=== PATIENT | female | born 1990 | race Caucasian/White ===

== ENCOUNTER 2020-02-16 00:21 | Emergency (ER) | payer BC, SELFPAY ==
[2020-02-16 00:23] VITALS: BP 153/99; PULSE 115; RESP 20; TEMP 36.4; O2SAT 100
--- NOTE | 2020-02-16 01:08 | ED.WOUNDLAC ---
HPI - Wound/Laceration General Chief Complaint: Wound/Laceration Stated Complaint: laceration LLE Time Seen by Provider: 02/16/20 00:53 History of Present Illness HPI narrative: Patient presents to the ER via her boyfriend, for a left leg laceration. She fell backwards tonight on the metal handle of an ice chest. She said the pain is 4 out of 10. No other injuries. Tetanus is up-to-date. She has no medical problems. Onset (ago): hour(s) Extremity Location: Left: thigh Related Data Home Medications Medication Instructions Recorded Confirmed etonogestrel-ethinyl estradiol vag ring VAGINAL 02/16/20 [NuvaRing] Allergies Allergy/AdvReac Type Severity Reaction Status Date / Time No Known Allergies Allergy Verified 02/16/20 00:26 Review of Systems Review of Systems: Narrative: CONSTITUTIONAL: Denies fever, chills, or sweats. EYES: Denies visual changes, redness, or discharge. ENT: Denies rhinorrhea, congestion, sore throat, or otalgia. CARDIOVASCULAR: Denies chest pain, palpitations, or edema. RESPIRATORY: Denies cough or dyspnea. GASTROINTESTINAL: Denies abdominal pain, nausea, vomiting, or diarrhea. GENITOURINARY: Denies dysuria or hematuria. SKIN: Denies rash or itching. MUSCULOSKELETAL: Denies back pain, joint pain, or myalgia. 2 cm laceration on the left posterior thigh. NEUROLOGIC: Denies headache, numbness, or weakness. All systems reviewed & are unremarkable except as noted in HPI and below PMFSH Past Medical History Medical History (Updated 02/16/20 @ 01:12 by Cherry Garvey MD) Leg laceration Social History Social History (Updated 02/16/20 @ 01:10 by Cherry Garvey MD) Alcohol intake: current Exam Narrative: Exam Narrative: GENERAL: Well-appearing, well-nourished, and in no acute distress. Taniya young lady. HEAD: Normocephalic, atraumatic. EYES: PERRLA and EOMI. ENT: Nares clear, no rhinorrhea or epistaxis. Mucous membranes moist. NECK: Supple. CHEST: Clear to auscultation. No respiratory distress. HEART: Regular rate and rhythm. No murmur heard. Normal peripheral pulses. ABDOMEN: Soft, nontender, nondistended, normal active bowel sounds. EXTREMITIES: Normal range of motion. No edema. 2 cm laceration on the posterior left thigh, no longer bleeding. SKIN: Warm, dry, no rash. NEURO: No focal deficits. Alert and oriented x3. PSYCH: Normal mood and affect. Course Vital Signs Vital signs: Vital Signs Temperature 97.5 F L 02/16/20 00:23 Pulse Rate 115 H 02/16/20 00:23 Respiratory Rate 20 02/16/20 00:23 Blood Pressure 153/99 H 02/16/20 00:23 Pulse Oximetry 100 02/16/20 00:23 Temperature 97.5 F L 02/16/20 00:23 Pulse Rate 115 H 02/16/20 00:23 Respiratory Rate 20 02/16/20 00:23 Blood Pressure 153/99 H 02/16/20 00:23 Pulse Oximetry 100 02/16/20 00:23 Procedures Laceration Laceration 1: Date: 02/16/20 Time: 01:10 Site: lower extremity Side (If applicable): left Size (cm): 2 Description: linear Depth: simple, single layer Local Anesthetic: none ====== Skin Level ====== Skin layer closed with: john (3) ====== Subcutaneous Layer ====== ====== Muscle Layer ====== ====== Tendon Layer ====== Dressing: Gauze and tape MDM - Wound/Laceration Medical Records Attestation: I reviewed the patient's medical records. Discharge Plan Discharge Clinical Impression: Leg laceration Qualifiers: Encounter type: initial encounter Laterality: left Qualified Code(s): S81.812A - Laceration without foreign body, left lower leg, initial encounter Patient Disposition: Home, Self-Care Condition: Stable Instructions: Laceration (ED), Staple Care (ED) Prescriptions: No Action etonogestrel-ethinyl estradiol [NuvaRing] 0.12-0.015 mg/24 hr ring VAGINAL RF: 0 Follow-up/Referrals: Zac Pinzon MD [Physician] - (Call make an appointment to have your
[2020-02-16 01:17] VITALS: BP 142/87; PULSE 99; RESP 16; O2SAT 99
== END 2020-02-16 01:19 | disposition home or self-care (01) ==
PROVIDERS: Emergency Provider Emergency Medicine
DX: S71.112A Laceration without foreign body, left thigh, initial encounter (principal); W01.198A Fall on same level from slipping, tripping and stumbling with subsequent striking against other object, initial encounter
CPT/HCPCS: 12001; 99283; A9270